=== PATIENT | female | born 1970 ===

== ENCOUNTER 2018-07-09 15:04 | Outpatient (CLI) | payer OTHER ==
[~2018-07-09] VITALS: Ht 170.2 cm; Wt 72.6 kg
== END 2018-07-09 15:20 | disposition home or self-care (01) ==
LOC: OFIC 805 15:04
DX: R04.0 Epistaxis (principal); J30.89 Other allergic rhinitis

== ENCOUNTER 2018-08-23 09:58 | Outpatient (CLI) | payer OTHER ==
[~2018-08-23] VITALS: Ht 152.4 cm; Wt 72.6 kg
== END 2018-08-23 10:15 | disposition home or self-care (01) ==
LOC: OFIC 805 09:58
DX: R04.0 Epistaxis (principal); J30.89 Other allergic rhinitis